=== PATIENT | male | born 1970 | race Caucasian/White ===

== ENCOUNTER 2018-08-12 09:42 | Emergency (ER) | payer OTHER ==
[~2018-08-12] VITALS: Ht 185.4 cm; Wt 97.5 kg
[2018-08-12] MEDS ORDERED: TOBRADEX EYE DR10 ML OP (11:14)
== END 2018-08-12 11:38 | disposition home or self-care (01) ==
LOC: ER 09:42
DX: H10.89 Other conjunctivitis (principal)